=== PATIENT | male | born 1950 | race Caucasian/White ===

== ENCOUNTER → 2016-06-11 | Day surgery (SDC) | payer BC ==
[~2016-06-11] MED LIST: AMLO5TAB2 PO; CIAL10TA PO; CIAL5TAB PO; HYDR-3366 PO; LIDOCAINE HCL 1% PF 30 ML VIAL INFIL ONE; LISI2.5T3 PO; LISI40TA PO; MEPERIDINE HCL 25 MG/ML VIAL IV ONE; NAPR220T95 PO; PROPOFOL 200 MG/20 ML AMP IV ONE; SODIUM CHLORIDE 0.9% 10 ML VIAL ONE; TRIAMCINOLONE ACETONIDE 40 MG/ML VIAL NB ONE; methylPREDNISolone ACETATE 80 MG/ML VIAL ONE
--- NOTE | 2016-06-16 09:58 | M6 ---
cc: DARIN POTTER M.D. DATE: 06/11/2016 DATE OF : 1950 PROCEDURE Fluoroscopically guided L5-S1 translaminar epidural steroid injection. PROCEDURE NOTE History and physical was completed and signed. Consent was signed. Procedure site was marked. Medications were listed and reconciled. Pain score was recorded. Allergies were noted. Timeout was taken. Fluoroscopy time was recorded where applicable. Sedation was administered or directed by Dr. Potter. The patient was given oxygen. The patient was monitored by a registered nurse. Total procedure time was greater than 15 minutes. An IV was started, blood pressure cuff, pulse oximeter and EKG were applied. The patient was placed in the prone position on a Abhay table, sedated with small amounts of propofol titrated to effect. Vital signs were monitored and remained stable throughout the procedure. The lumbar area was prepped with alcohol and 10% Betadine solution, draped with sterile drapes. Fluoroscopy was used to visualize the L5-S1 interlaminar space. The skin was infiltrated with 1% Xylocaine using a 27-gauge needle. Then a 3-1/2 inch 18-gauge Metz needle was advanced using fluoroscopic guidance and the [id number]-ln-[id number] technique into the epidural space at L5-S1 slightly to the right of the midline. There was negative aspiration for blood or any other type of fluid and the patient was given 10 mL of 0.5% Xylocaine, 80 mg of Depo-Medrol. Following this the patient was taken to the recovery room with stable vital signs, neurologically intact. W. MD CELIA Lawrence/NANCY /7:43 AM /8:54 AM
== END | disposition home or self-care (01) ==
LOC: PHSDC 06:34
PROVIDERS: ATTEND Pain Medicine Interventional Pain Medicine
DX: M54.5 Low back pain (principal)
CPT/HCPCS: 62323; 99152; J1040; J2175; J3301

== ENCOUNTER → 2016-08-19 | Day surgery (SDC) | payer BC ==
[~2016-08-19] VITALS: Ht 190.5 cm; Wt 105.2 kg
[~2016-08-19] MED LIST changes: +ACETAMINOPHEN/HYDROcodone 325 MG/7.5 MG TAB PO PRN; +BUPIVACAINE/EPINEPHRINE 0.25% 50 ML VIAL ONE; +CHLORHEXIDINE GLUCONATE 2 % 1 PACK (2 CLOTHS) TOPICAL PRN; -CIAL10TA PO; +DEXAMETHASONE SOD PHOS 4 MG/ML VIAL ONE; +DO NOT ADM ANY ANTICOAGULANT DRUGS PRN; +FAMOTIDINE 20 MG/2 ML VIAL ONE; +GELATIN 12 MM/7 MM FOAM ONE; +GENTAMICIN SULFATE 80 MG/2 ML VIAL ONE; +INSULIN HUMAN REGULAR 1,000 UNITS/10 ML VIAL SQ PRN; +KETOROLAC TROMETHAMINE 60 MG/2 ML (IM) VIAL IM ONE; +LACTATED RINGER'S 1000 ML INJ 1,000 ML IV SCH; +LACTATED RINGER'S 1000 ML IV PRN; -LIDOCAINE HCL 1% PF 30 ML VIAL INFIL ONE; -LISI2.5T3 PO; -MEPERIDINE HCL 25 MG/ML VIAL IV ONE; +METOPROLOL TARTRATE 25 MG TAB PO PRN; +MIDAZOLAM HCL 2 MG/2 ML VIAL ONE; +MORPHINE SULFATE 4 MG/ML INJ IV PUSH PRN; -NAPR220T95 PO; +NEOSTIGMINE 3 MG/3 ML SYR IV ONE; +ONDANSETRON HCL 4 MG/2 ML VIAL IV PUSH ONE; +PHENYLEPH/NS 1000 MCG/10 ML SYR IV ONE; +POVIDONE IODINE 5% (ANTISEPSIS KIT) 4 APPLICATIONS EACH NARE PRN; +POVIDONE IODINE 7.5% SCRUB 118 ML BOTTLE TOPICAL SCH; +SODIUM CHLORID 0.9% 500 ML IV PRN; -SODIUM CHLORIDE 0.9% 10 ML VIAL ONE; -TRIAMCINOLONE ACETONIDE 40 MG/ML VIAL NB ONE; +ceFAZolin 2 GM PREMIX 50 ML IV SCH; +ePHEDrine/NS 25 MG/5 ML SYR IV ONE; +fentaNYL CITRATE 250 MCG/5 ML AMP ONE; -methylPREDNISolone ACETATE 80 MG/ML VIAL ONE
[2016-08-19 11:22] VITALS: BP 145/96; PULSE 94; RESP 18; TEMP 98.9; O2SAT 98
--- NOTE | 2016-08-19 15:24 | PD.OP ---
cc: Alistair Love. Operative Report Date of Surgery: August 19, 2016 Preoperative Diagnosis: Lumbar spinal stenosis, L4 5. Extradural lesion, probable synovial cyst, right L4 5. Right lumbosacral radiculopathy Postoperative Diagnosis: Same Procedure: Lumbar laminectomy from the right L4, L5 with lateral recess decompression and resection extra dural lesion. Use of dilation port and microscope Anesthesia: Gen. Surgeon: Alistair Love Construction Project Manager(s): GABY Mendoza Operation and Findings: EBL: 25 cc INDICATION: Patient is a 65-year-old male with significant right leg pain. Investigative studies are suspicious for an extradural lesion which is likely a synovial cyst from the L4 5 facet joint. Vascular studies are consistent with a high-grade spinal stenosis associated with the same. He presents for surgical treatment. NOTE: Juan Carlos Mendoza PA-C was present for the entire surgical procedure as my senior agricultural assistant. In my medical opinion her skill and care was necessary for the proper management of this patient. PROCEDURE: The patient was brought to the operating room and anesthetized in the supine position. The patient was rolled to a prone position on a Rupert frame on a Abhay table. All pressure points were protected in the back was scrubbed with alcohol followed by Hibiclens followed by ChloraPrep and draped sterilely. A timeout was done and antibiotics were given. AP and lateral radiographic images were used to identify the proper levels and perform skin markings. We started from the right side at the L4 5 level. A paramedian incision was made and an off-midline fascial incision was made. A dilating system was placed down to the interlaminar space and held provisionally to the side of the table. The microscope was brought into the field. A high-speed bur under the microscope was used to perform a partial bilateral laminectomy from that side. A lateral recess decompression involving exploration of the extradural region and an adherent probable synovial cyst which created significant nerve root compression was accomplished using straight and angled Kerrison punches. A partial medial facetectomy was accomplished. The extradural lesion was densely adherent to the crossing L5 nerve root. Very carefully under the microscope this was removed from that nerve root with great care. The crossing and exiting nerve roots were completely decompressed. The wound was irrigated copiously. Hemostasis was controlled. The deep fascia was approximated with interrupted 0 Vicryl suture subcutaneous suture with 2-0 Vicryl suture and skin with running intradermal 3-0 Vicryl followed by Dermabond. A field block with local anesthesia was utilized. A sterile dressing was applied. The sponge count and needle counts and instrument counts were all correct. The patient tolerated the procedure well as taken to the recovery room in satisfactory condition. FINDINGS: There was evidence of an extradural lesion associated with a high- grade lateral recess stenosis. This created a significant nerve root compromise. A partial bilateral laminectomy was necessary for proper exposure. The decompression was felt be very satisfactory. Alistair Love MD August 19, 2016 15:24
--- NOTE | 2016-08-19 15:28 | PD.ORT.PN ---
Subjective Subjective Remarks Patient stable Objective Vitals Vital Signs Date Time Temp Pulse Resp B/P Pulse Ox O2 Delivery O2 Flow Rate FiO2 08/19/16 11:22 98.9 94 18 145/96 98 Assessment & Plan Assessment and Plan Lumbar spinal stenosis. Synovial cyst. PLAN: Discharge to home Out of bed with brace Stable orthopedically Regular diet Avoid bending lifting and stooping [place] for pain Follow-up in 2 weeks Alistair Love MD August 19, 2016 15:27
--- NOTE | 2016-08-19 15:47 | RADRPT ---
EXAM DATE/TIME: 08/19/2016 14:15 [facility] COMPARISON: No previous studies available for comparison. INDICATIONS : Post lumbar laminectomy MEDICAL HISTORY : Back pain SURGICAL HISTORY : None. ENCOUNTER: Initial ACUITY: 1 day PAIN SCORE: Non-responsive. LOCATION: Lumbar spine FINDINGS/CONCLUSION: Single film submitted for interpretation. Radiopaque device overlies the L4 -5 facet joints extending to the 4-5 disc space. Hany Escobar MD on August 19, 2016 at 15:44 Board Certified Radiologist. This report was verified electronically.
[2016-08-19 16:50] VITALS: BP 107/75; PULSE 97; RESP 16; TEMP 97.6; O2SAT 97
== END | disposition home or self-care (01) ==
LOC: HSDC 10:44
PROVIDERS: ATTEND Orthopaedic Surgery Orthopaedic Surgery of the Spine
DX: M48.06 Spinal stenosis, lumbar region (principal); M54.17 Radiculopathy, lumbosacral region; M71.38 Other bursal cyst, other site
CPT/HCPCS: 00630; 63030; 72020; 76000; 88304; J1100; J1580; J1885; J2250; J2370; J2405; J2710; J3010; J7120